=== PATIENT | female | born 1955 | race Caucasian/White ===

== ENCOUNTER 2016-07-21 14:37 | Emergency (ER) | payer BC ==
[~2016-07-21] VITALS: Ht 154.9 cm; Wt 60.1 kg
[~2016-07-21 14:37] MED LIST: BACTRIM,SEPT1 TABLET PO; CLEOCIN300 MG PO; DILAUDID2 MG PO; LORATADINE-D 11 EAC1 PO; LORTAB 5-325 M1 EACH PO; MACROBID100 MG PO; NAPROSYN500 MG PO; NO HOME MEDS PO; PERCOCET 5/31 TABLET PO; PYRIDIUM100 MG PO; PYRIDIUM200 MG PO
[2016-07-21 15:25] LABS: HEMATOCRIT 39.7 % (36.0-46.0); MCH 33.6 PG (29.0-34.0); MCHC 33.8 G/DL (30.0-36.0); MCV 99.5 FL (83-99); MEAN PLAT.VOLUME 12.2 uM^3 (9.5-12.4); PLATELET COUNT 226 K/uL (156-360); RBC DIS.WIDTH-CV 13.2 % (11.8-14.6); RBC DIS.WIDTH-SD 46.7 % (39-53); RED BLOOD COUNT 3.99 M/uL (3.80-5.20); WHITE BLOOD COUNT 8.1 K/uL (4.1-10.2)
[2016-07-21 16:03] LABS: ANION GAP 10 MEQ/L (2-14); CHLORIDE 106 MEQ/L (99-109); POTASSIUM 4.2 MEQ/L (3.7-5.4); SAMPLE HEMOLYSIS CHECK 0; SAMPLE ICTERIC CHECK 0; SAMPLE LIPEMIA CHECK 0; SODIUM 140 MEQ/L (136-147)
[2016-07-21 16:08] LABS: GFR ESTIMATE (CALCULATED) > 59 mL/min/; GLUCOSE 96 mg/dL (70-99); UREA NITROGEN (BUN) 14 mg/dL (9-23)
[2016-07-21] MEDS ORDERED: TESSALON PERLE100 MG PO (16:48)
[2016-07-21] MEDS ORDERED: VENTOLIN HFA18 GM IH (16:48)
[2016-07-21] MEDS ORDERED: PREDNISONE50 MG PO (16:48)
[2016-07-21] MEDS ORDERED: LEVAQUIN500 MG PO (16:48)
[2016-07-21 17:03] VITALS: BP 137/65
== END 2016-07-21 17:10 | disposition home or self-care (01) ==
LOC: EME 14:37
DX: J18.0 Bronchopneumonia, unspecified organism (principal); F17.200 Nicotine dependence, unspecified, uncomplicated; Z71.6 Tobacco abuse counseling; Z88.0 Allergy status to penicillin
CPT/HCPCS: 71020; 80048; 85027; 94664; 99281; 99284; J7512

== ENCOUNTER 2017-06-25 09:58 | Emergency (ER) | payer BC ==
[~2017-06-25] VITALS: Ht 154.9 cm; Wt 55.8 kg
[~2017-06-25 09:58] MED LIST changes: +LEVAQUIN500 MG PO; +PREDNISONE50 MG PO; +TESSALON PERLE100 MG PO; +VENTOLIN HFA18 GM IH
[2017-06-25 10:28] LABS: ADD MIUA? YES; BILIRUBIN NEGATIVE; BLOOD SMALL; COLOR AMBER ((YELLOW)); GLUCOSE (STRIP) NEGATIVE; KETONES NEGATIVE; LEUKOCYTES TRACE; NITRITE POSITIVE; PROTEIN (STRIP) 30; SPECIFIC GRAVITY 1.018 (1.000-1.030)
[2017-06-25 10:34] LABS: BACTERIA NONE SEEN /HPF; EPITHELIAL CELLS 1+ /HPF; MUCUS TRACE /LPF; RED BLOOD CELLS 20-30 /HPF (0-5); UCUL ADDED? YES; URIC ACID CRYSTALS 1+ /HPF; WHITE BLOOD CELLS TNTC /HPF (0-5)
[2017-06-25] MEDS ORDERED: PYRIDIUM200 MG PO (11:03)
[2017-06-25] MEDS ORDERED: BACTRIM,SEPT1 TABLET PO (11:03)
[2017-06-25 11:25] VITALS: BP 134/70
== END 2017-06-25 11:26 | disposition home or self-care (01) ==
LOC: EME 09:58
DX: N39.0 Urinary tract infection, site not specified (principal); Z88.0 Allergy status to penicillin; F17.200 Nicotine dependence, unspecified, uncomplicated
CPT/HCPCS: 81003; 87086; 99281; 99283

== ENCOUNTER 2017-07-20 12:23 | Emergency (ER) | payer BC ==
[~2017-07-20] VITALS: Ht 154.9 cm; Wt 56.9 kg
[2017-07-20] MEDS ORDERED: CIPRO500 MG PO (13:46)
[2017-07-20 14:21] VITALS: BP 120/64
== END 2017-07-20 14:22 | disposition home or self-care (01) ==
LOC: EME 12:23
DX: R21 Rash and other nonspecific skin eruption (principal); T37.0X5A Adverse effect of sulfonamides, initial encounter; N39.0 Urinary tract infection, site not specified; Z87.440 Personal history of urinary (tract) infections; Z88.0 Allergy status to penicillin; F17.200 Nicotine dependence, unspecified, uncomplicated
CPT/HCPCS: 99281; 99285; J1200; J2930

== ENCOUNTER 2018-02-21 06:57 | Emergency (ER) | payer BC ==
[~2018-02-21] VITALS: Ht 157.5 cm; Wt 56.3 kg
[~2018-02-21 06:57] MED LIST changes: +CIPRO500 MG PO
[2018-02-21 07:47] LABS: APPEARANCE CLEAR ((CLEAR)); BILIRUBIN NEGATIVE; BLOOD NEGATIVE; COLOR YELLOW ((YELLOW)); GLUCOSE (STRIP) NEGATIVE; KETONES NEGATIVE; LEUKOCYTES SMALL; NITRITE NEGATIVE; PROTEIN (STRIP) NEGATIVE; SPECIFIC GRAVITY 1.008 (1.000-1.030); UROBILINOGEN 0.2 MG/DL (0.2-1.0)
[2018-02-21 07:47] LABS: HEMATOCRIT 38.2 % (36.0-46.0); MCH 34.6 PG (29.0-34.0); MCV 101.6 FL (83-99); RBC DIS.WIDTH-CV 13.1 % (11.8-14.6); RBC DIS.WIDTH-SD 49.1 % (39-53); RED BLOOD COUNT 3.76 M/uL (3.80-5.20); WHITE BLOOD COUNT 8.5 K/uL (4.1-10.2)
[2018-02-21 07:53] LABS: BACTERIA NONE SEEN /HPF; EPITHELIAL CELLS 1+ /HPF; MUCUS NONE SEEN /LPF; RED BLOOD CELLS 0-5 /HPF (0-5); UCUL ADDED? YES; WHITE BLOOD CELLS 30-40 /HPF (0-5)
[2018-02-21 08:11] LABS: CHLORIDE 107 MEQ/L (99-109); POTASSIUM 4.7 MEQ/L (3.7-5.4); SODIUM 141 MEQ/L (136-147)
[2018-02-21 08:16] LABS: CREATININE 0.7 MG/DL (0.6-1.3); GFR ESTIMATE (CALCULATED) > 59 mL/min/; GLUCOSE 92 mg/dL (70-99); UREA NITROGEN (BUN) 10 mg/dL (9-23)
[2018-02-21 08:19] LABS: PLAT.SUFFICIENCY ADEQUATE; PLATELET COUNT 219 K/uL (156-360)
[2018-02-21] MEDS ORDERED: PYRIDIUM200 MG PO (08:42)
[2018-02-21] MEDS ORDERED: KEFLEX500 MG PO (08:42)
[2018-02-21 08:54] VITALS: BP 132/66
== END 2018-02-21 08:59 | disposition home or self-care (01) ==
LOC: EME 06:57
PROVIDERS: Nurse Practitioner Family
DX: N39.0 Urinary tract infection, site not specified (principal); B96.20 Unspecified Escherichia coli [E. coli] as the cause of diseases classified elsewhere; F17.200 Nicotine dependence, unspecified, uncomplicated; Z87.442 Personal history of urinary calculi; Z87.440 Personal history of urinary (tract) infections; Z88.1 Allergy status to other antibiotic agents; Z88.0 Allergy status to penicillin
CPT/HCPCS: 80048; 81003; 85027; 87077; 87086; 87186; 99281; 99284